=== PATIENT | male | born 1980 | race Caucasian/White ===

== ENCOUNTER 2024-05-29 20:13 | Emergency (ER) | payer MEDICAID ==
[~2024-05-29] VITALS: Ht 170.2 cm; Wt 100.3 kg
[2024-05-29 20:23] VITALS: O2SAT 94
[2024-05-29 21:37] LABS: BASOPHILS % 0.5 % (0.0-2.0); EOSINOPHILS % 1.5 % (0.0-5.0); HEMATOCRIT. 41.5 % (42.0-52.0); HEMOGLOBIN. 13.5 g/dL (14.0-18.0); LYMPHOCYTES % 41.8 % (20.0-50.0); MEAN CORPUSCULAR HGB CONC 32.6 g/dL (31.0-37.0); MEAN CORPUSCULAR VOLUME 94.9 fL (80.0-94.0); MEAN PLATELET VOLUME 8.5 fl (7.4-10.4); MONOCYTES % 10.3 % (2.0-8.0); NEUTROPHILS % 45.9 % (40.0-76.0); PLATELET 196 x1000/uL (130-400); RED BLOOD CELL COUNT 4.37 mill/uL (4.7-6.1); RED CELL DISTRIBUTION WIDTH 14.4 % (11.6-14.6); WHITE BLOOD COUNT 5.2 x1000/uL (4.5-11.0)
[2024-05-29 21:41] LABS: CHLORIDE 107 mEq/L (98-107); SODIUM 140 mEq/L (136-145)
[2024-05-29 21:42] LABS: CALCIUM 8.8 mg/dL (8.7-10.4); CARBON DIOXIDE 29 mEq/L (21-32)
[2024-05-29 21:47] LABS: CREATININE 1.1 mg/dL (0.6-1.3); GLUCOSE 105 mg/dL (70-105); UREA NITROGEN BLOOD 14 mg/dL (9-23)
[2024-05-29 23:13] LABS: CHLORIDE 106 mEq/L (98-107); POTASSIUM 4.3 mEq/L (3.5-5.1); SODIUM 138 mEq/L (136-145)
[2024-05-29 23:14] LABS: CALCIUM 9.1 mg/dL (8.7-10.4); CARBON DIOXIDE 28 mEq/L (21-32)
[2024-05-29 23:19] LABS: CREATININE 1.1 mg/dL (0.6-1.3); GLUCOSE 110 mg/dL (70-105); UREA NITROGEN BLOOD 12 mg/dL (9-23)
[2024-05-29 23:21] LABS: ALANINE AMINOTRANSFERASE 143 IU/L (10-49); ALBUMIN 3.8 g/dL (3.2-4.8); ASPARTATE AMINOTRANSFERASE 76 IU/L (<34); BILIRUBIN TOTAL 0.5 mg/dL (0.1-1.0); PROTEIN TOTAL 6.9 g/dL (6.0-8.3)
[2024-05-29 23:33] LABS: TROPONIN I HIGH SENSITIVITY < 4 ng/L (3.0-53)
[2024-05-30 01:03] VITALS: BP 105/64; PULSE 66; RESP 16; TEMP 36.89184; O2SAT 97
== END 2024-05-30 01:06 | disposition home or self-care (01) ==
LOC: ER 20:13
DX: M79.89 Other specified soft tissue disorders (principal); R60.0 Localized edema
CPT/HCPCS: 36415; 71045; 80048; 80053; 83880; 84484; 85025; 93970; 99284

== ENCOUNTER 2024-08-03 15:49 | Emergency (ER) | payer MEDICAID ==
[~2024-08-03] VITALS: Ht 170.2 cm; Wt 102.1 kg
[2024-08-03 16:07] VITALS: O2SAT 96
[2024-08-03] MEDS ORDERED: PHEN100C4 MT (16:42)
[2024-08-03 17:21] VITALS: BP 112/78; PULSE 88; RESP 14; TEMP 36.78072; O2SAT 99
== END 2024-08-03 17:25 | disposition home or self-care (01) ==
LOC: ER 15:49
DX: Z76.0 Encounter for issue of repeat prescription (principal)
CPT/HCPCS: 99281